=== PATIENT | male | born 1980 | race Caucasian/White ===

== ENCOUNTER 2019-06-28 07:29 | Day surgery (SDC) | payer OTHER ==
[~2019-06-28 07:29] MED LIST: Lactated Ringers 1,000 ML IV SCH; Lidocaine 1%/Sod Bicarbonate in NS 8.4% 1 ML Syringe IDERM PRN; Sodium Chloride 0.9% 10 ML Syringe FLUSH PRN
--- NOTE | 2019-06-28 09:39 | PCM.PREANE ---
Preanesthetic Assessment - Procedure Proposed Procedure: Colonoscopy - Anesthesia/Transfusion/Family Hx Anesthesia History: Prior Anesthesia Without Reaction Family History of Anesthesia Reaction: No - Review of Systems General: No Symptoms Pulmonary: Cough (Occasional this winter, nonproductive. 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 and he has not had any episodes of SOB since that time.) Gastrointestinal: No Symptoms Neurological: No Symptoms Other: Reports: Sinus Problem (allergic rhinitis), Anxiety - Physical Assessment NPO Status Date: 06/28/19 NPO Status Time: 04:30 Vital Signs: Last Vital Signs Temp 36.9 C 06/28/19 07:40 Pulse 66 06/28/19 07:40 Resp 16 06/28/19 07:40 BP 121/82 06/28/19 07:40 Pulse Ox 97 06/28/19 07:40 Height: 1.75 m Weight: 78.925 kg ASA Class: 2 Mental Status: Alert & Oriented x3 Airway Class: Mallampati = 2 Dentition: Reports: Normal Dentition Thyro-Mental Finger Breadths: 3 Mouth Opening Finger Breadths: 3 ROM/Head Extension: Full Lungs: Clear to Auscultation, Normal Respiratory Effort Cardiovascular: Regular Rate, Regular Rhythm - Allergies Allergies/Adverse Reactions: Allergies Allergy/AdvReac Type Severity Reaction Status Date / Time No Known Allergies Allergy Verified 06/28/19 08:05 - Anesthesia Plan Pre-Op Medication Ordered: None - Acknowledgements Anesthesia Type Planned: MAC Pt an Appropriate Candidate for the Planned Anesthesia: Yes Alternatives and Risks of Anesthesia Discussed w Pt/Guardian: Yes Pt/Guardian Understands and Agrees with Anesthesia Plan: Yes PreAnesthesia Questionnaire HEENT History: Reports: Allergic Rhinitis, Sinusitis Cardiovascular History: Reports: Hypertension, Other (See Below) Respiratory History: Reports: None Gastrointestinal History: Reports: Other (See Below) Other Gastrointestinal History: hemorrhoids, tubular adenoma, abdominal pain, blood in stool, rectal pain, constipation Genitourinary History: Reports: Renal Calculus FACILITIES MANAGER History: Reports: None Musculoskeletal History: Reports: None, Fracture Neurological History: Reports: Headaches, Chronic Psychiatric History: Reports: Anxiety, Depression Endocrine/Metabolic History: Reports: None Hematologic History: Reports: None Immunologic History: Reports: None Oncologic (Cancer) History: Reports: None Dermatologic History: Reports: Other (See Below) Other Dermatologic History: cold sores - Infectious Disease History Infectious Disease History: Reports: Chicken Pox - Past Surgical History Head Surgeries/Procedures: Reports: None HEENT Surgical History: Reports: LASIK, Oral Surgery Respiratory Surgical History: Reports: None GI Surgical History: Reports: Colonoscopy Female Surgical History: Reports: None Male Surgical History: Reports: Vasectomy Endocrine Surgical History: Reports: None Neurological Surgical History: Reports: None Musculoskeletal Surgical History: Reports: None Oncologic Surgical History: Reports: None Dermatological Surgical History: Reports: None - SUBSTANCE USE Smoking Status *Q: Never Smoker Recreational Drug Use History: No - HOME MEDS Home Medications: Home Meds FLUoxetine [PROzac] 10 mg PO BEDTIME 10/31/18 [History] Lisinopril 10 mg PO DAILY 10/31/18 [History] Multivitamin [Daily Multiple Vitamin] 1 tab PO DAILY 06/27/19 [History] Psyllium Husk [Metamucil] 2 tbsp PO DAILY 06/27/19 [History] - CURRENT (IN HOUSE) MEDS Current Meds: Current Medications Lactated Ringer's (Ringers, Lactated) 1,000 mls @ 125 mls/hr IV ASDIRECTED MILA Stop: 06/28/19 23:00 Last Admin: 06/28/19 07:52 Dose: 125 mls/hr Lidocaine/Sodium Bicarbonate (Buffered Lidocaine 1% In Ns 8.4%) 0.25 ml IDERM ONETIME PRN PRN Reason: Prior to IV Start Stop: 06/28/19 18:00 Last Admin: 06/28/19 07:52 Dose: 0.25 ml Sodium Chloride (Saline Flush) 10 ml FLUSH ASDIRECTED PRN PRN Reason: Keep Vein Open Stop: 06/28/19 18:00
[2019-06-28] MEDS ORDERED: Propofol 200 MG/20 ML SDV ONE ×2 (10:04→10:38)
[2019-06-28] MEDS ORDERED: fentaNYL 100 MCG/2 ML SDV ONE (10:09)
[2019-06-28] MEDS ORDERED: Lidocaine 1% 4 ML ONE (10:09)
--- NOTE | 2019-06-28 11:02 | PCM.PRNOTE ---
- Free Text/Narrative Note: Date: 06/28/2019 Procedure: screening colonoscopy Endoscopist: Felix Aparicio MD Findings: Ileocecal valve visualized. Prep was excellent. 4 small polyps removed. Detailed Report: The patient was taken to the endoscopy suite and placed in left lateral decubitus position. Time out was performed and monitored anesthesia care was initiated. The anus appeared normal. Digital rectal exam was unremarkable. The lubricated colonoscope was then inserted and advanced all the way to the cecum. The ileocecal valve was visualized. The prep was noted to be excellent. On slow withdrawal of the scope, mucosal surfaces were carefully inspected. there were a few subcentimeter polyps noted between the splenic flexure and the rectum. Three were biopsied with hot forceps and the bases fulgurated. A pedunculated polyp with narrow stalk was biopsied with the hot snare. No diverticular disease or hemorrhoidal disease appreciated. The patient tolerated the procedure well. Felix Aparicio MD General Surgery
--- NOTE | 2019-06-28 11:53 | PCM48HPAN ---
Post Anesthesia Note - EVALUATION WITHIN 48HRS OF ANESTHETIC Vital Signs in Normal Range: Yes Patient Participated in Evaluation: Yes Respiratory Function Stable: Yes Airway Patent: Yes Cardiovascular Function Stable: Yes Hydration Status Stable: Yes Pain Control Satisfactory: Yes Nausea and Vomiting Control Satisfactory: Yes Mental Status Recovered: Yes Vital Signs: Last Vital Signs Temp 97.3 F 06/28/19 10:57 Pulse 74 06/28/19 11:10 Resp 16 06/28/19 11:10 BP 93/66 06/28/19 11:10 Pulse Ox 97 06/28/19 11:10
== END 2019-06-28 12:00 | disposition home or self-care (01) ==
LOC: JD.SDS 07:29
PROVIDERS: ATTEND Surgery
DX: Z12.11 Encounter for screening for malignant neoplasm of colon (principal); D12.3 Benign neoplasm of transverse colon; D12.4 Benign neoplasm of descending colon; K63.5 Polyp of colon; K62.1 Rectal polyp; I10 Essential (primary) hypertension; F41.9 Anxiety disorder, unspecified; F32.9 Major depressive disorder, single episode, unspecified; Z79.899 Other long term (current) drug therapy; Z86.010 Personal history of colon polyps; Z87.19 Personal history of other diseases of the digestive system
CPT/HCPCS: 45384; 45385; J2001; J2704; J3010; J7120; 00812